=== PATIENT | female | born 1960 | race Caucasian/White ===

== ENCOUNTER → 2021-11-14 | Outpatient (CLI) | payer BC ==
[2021-11-14 10:19] LABS: HEMATOCRIT 39.8 % (37.0-47.0); HEMOGLOBIN 13.6 g/dl (12.5-16.0); MEAN CELL VOLUME 87 fl (80.0-100.0); MEAN CORPUSCULAR HEMOGLOBIN 30 pg (27-31); MEAN CORPUSCULAR HGB CONC 34 g/dl (33.0-37.0); MEAN PLATELET VOLUME 9.3 fl (7.4-10.4); PLATELET COUNT 222 K/mm3 (130-400); RED BLOOD COUNT 4.56 M/mm3 (4.10-5.30); REDCELL DISTRIBUTION WIDTH-CV 12.4 % (11.5-14.5)
[2021-11-14 10:35] LABS: ALANINE AMINOTRANSFERASE 26 U/L (0-55); ALBUMIN 4.3 gm/dL (3.4-4.8); ALKALINE PHOSPHATASE 65 U/L (40-150); ANION GAP 10 mmol/L (7-16); AST,SGOT 21 U/L (5-34); BILIRUBIN,TOTAL 0.4 mg/dL (0.2-1.2); BLOOD UREA NITROGEN 12 mg/dL (10-20); CALCIUM 9.6 mg/dL (8.4-10.2); CARBON DIOXIDE 26 mmol/L (23-31); CHLORIDE 106 mmol/L (98-107); CREATININE, serum 0.84 mg/dL (0.57-1.11); GLUCOSE 105 mg/dL (70-99); POTASSIUM 4.4 mmol/L (3.5-4.5); SODIUM 142 mmol/L (136-145); TOTAL PROTEIN 7.5 gm/dL (6.2-8.1)
[2021-11-14 10:44] LABS: TROPONIN-I < 0.010 ng/mL (0.00-0.033)
== END ==
LOC: COL.LAB 09:24
DX: I44.7 Left bundle-branch block, unspecified (principal)

== ENCOUNTER → 2022-11-23 | Outpatient (CLI) | payer BC ==
[~2022-11-23] MED LIST: CEFTIN500 MG PO; PROTONIX 40MG T40 MG PO; PYRIDIUM200 M1 PO
== END ==
LOC: COL.LAB 11:23
DX: J30.1 Allergic rhinitis due to pollen (principal)